=== PATIENT | male | born 1975 | race African-American/Black ===

== ENCOUNTER 2021-02-12 09:28 | Emergency (ER) | payer MEDICAID ==
[~2021-02-12] VITALS: Ht 188 cm; Wt 78.0 kg
[~2021-02-12 09:28] MED LIST: PROT40 MT
[2021-02-12] MEDS ORDERED: KETOROLAC 30MG/ML VIAL IM ONE (10:30)
[2021-02-12] MEDS ORDERED: CYCLOBENZAPRINE 10MG TABLET PO ONE (10:30)
[2021-02-12 11:06] VITALS: BP 127/91
[2021-02-12] MEDS ORDERED: NAPR-1176 MT (11:20)
[2021-02-12] MEDS ORDERED: CYCL10TA7 MT (11:20)
== END 2021-02-12 11:40 | disposition home or self-care (01) ==
LOC: ER 09:47
DX: M54.5 Low back pain (principal); Z79.899 Other long term (current) drug therapy
CPT/HCPCS: 96372; 99283; J1885

== ENCOUNTER 2021-12-15 03:33 | Inpatient (IN) | payer MEDICAID ==
[~2021-12-15] VITALS: Ht 185.4 cm; Wt 62.6 kg
[~2021-12-15 03:33] MED LIST changes: +CYCL10TA21 MT; +NAPR-1176 MT
[2021-12-15] MEDS ORDERED: MORPHINE SULFATE 4 MG/ML CPJ (NOT FOR IM USE) IV STA (05:03)
[2021-12-15] MEDS ORDERED: ONDANSETRON HCL 4MG/2ML INJ IV STA (05:03)
[2021-12-15] MEDS ORDERED: SODIUM CHLORIDE 0.9% 1,000 ML IV ONE (05:15)
[2021-12-15 05:38] LABS: BASOPHILS % 0.5 % (0.0-2.0); EOSINOPHILS % 0.1 % (0.0-5.0); HEMATOCRIT. 39.7 % (42.0-52.0); HEMOGLOBIN. 13.2 g/dL (14.0-18.0); LYMPHOCYTES % 9.4 % (20.0-50.0); MEAN CORPUSCULAR HEMOGLOBIN 32.3 pg (28.0-32.0); MEAN CORPUSCULAR VOLUME 97.1 fL (80.0-94.0); MEAN PLATELET VOLUME 8.3 fl (7.4-10.4); MONOCYTES % 5.4 % (2.0-8.0); NEUTROPHILS % 84.6 % (40.0-76.0); PLATELET 199 x1000/uL (130-400); RED BLOOD CELL COUNT 4.08 mill/uL (4.7-6.1); RED CELL DISTRIBUTION WIDTH 14.7 % (11.6-14.6)
[2021-12-15 05:46] LABS: CHLORIDE 89 mEq/L (98-107)
[2021-12-15] MEDS ORDERED: ACETAMINOPHEN 325MG TABLET PO PRN (09:30)
[2021-12-15] MEDS ORDERED: LORAZEPAM 2MG/ML CPJ IV PRN (09:30)
[2021-12-15] MEDS ORDERED: ONDANSETRON HCL 4MG/2ML INJ IV PRN (09:30)
[2021-12-15] MEDS: SODIUM CHLORIDE 0.9% 1,000 ML IV SCH (09:56)
[2021-12-15 09:58] LABS: CLARITY URINE CLEAR (CLEAR); COLOR URINE DARK YELLOW (YELLOW); KETONES URINE 3+ (NEGATIVE); LEUKOCYTE ESTERASE URINE TRACE (NEGATIVE); NITRITE URINE NEGATIVE (NEGATIVE); OCCULT BLOOD URINE TRACE (NEGATIVE); PROTEIN URINE 2+ (NEGATIVE); SPECIFIC GRAVITY URINE 1.032 (1.005-1.030)
[2021-12-15] MEDS ORDERED: PANTOPRAZOLE SODIUM 40 MG/VIAL IV SCH (10:00)
[2021-12-15 12:00] LABS: BASOPHILS % 0.5 % (0.0-2.0); HEMOGLOBIN. 12.3 g/dL (14.0-18.0); LYMPHOCYTES % 11.5 % (20.0-50.0); MEAN CORPUSCULAR HEMOGLOBIN 32.9 pg (28.0-32.0); MEAN CORPUSCULAR VOLUME 96.1 fL (80.0-94.0); MEAN PLATELET VOLUME 7.9 fl (7.4-10.4); MONOCYTES % 5.2 % (2.0-8.0); NEUTROPHILS % 82.8 % (40.0-76.0); PLATELET 170 x1000/uL (130-400); RED BLOOD CELL COUNT 3.75 mill/uL (4.7-6.1); RED CELL DISTRIBUTION WIDTH 14.8 % (11.6-14.6)
[2021-12-15 12:07] LABS: HEPATITIS B SURFACE ANTIGEN NEGATIVE
[2021-12-15 12:10] LABS: AMYLASE 61 IU/L (25-115)
[2021-12-15 12:42] VITALS: BP 127/93
[2021-12-15 13:09] LABS: TOTAL IRON BINDING CAPACITY 293 ug/dL (250-450)
[2021-12-15 13:15] VITALS: BP 127/93
[2021-12-15] MEDS ORDERED: NALOXONE HCL 0.4MG/ML VIAL IV PRN (14:15)
[2021-12-15] MEDS: PANTOPRAZOLE SODIUM 40 MG/VIAL IV SCH ×2 (14:25→23:10)
[2021-12-15] MEDS: MORPHINE SULFATE 2 MG/ML CPJ (NOT FOR IM USE) IV PRN ×2 (14:26→20:19)
[2021-12-15] MEDS: MVI, ADULT NO.1 10 ML, FOLIC ACID 1 MG, THIAMINE HCL 100 MG in SODIUM CHLORIDE 0.9% 1,0... IV SCH ×4 (14:26)
[2021-12-15] MEDS: DIATR MEGLU/DIATRIZOATE SOLN 30ML PO NR ×2 (14:43→15:44)
[2021-12-15] MEDS ORDERED: SUCR1TAB PO (15:31)
[2021-12-15 15:43] LABS: FOLIC ACID (FOLATE) SERUM 3.6 ng/mL (>5.38)
[2021-12-15 16:00] VITALS: BP 143/92
[2021-12-15 20:00] VITALS: BP 134/85
[2021-12-15 21:32] LABS: HEMATOCRIT 31.5 % (42.0-52.0); HEMOGLOBIN 10.7 g/dL (14.0-18.0)
[2021-12-16] VITALS: BP 141/89
[2021-12-16] MEDS: SODIUM CHLORIDE 0.9% 1,000 ML IV SCH ×3 (01:05→18:18)
[2021-12-16 03:12] LABS: HEMATOCRIT 29.2 % (42.0-52.0); HEMOGLOBIN 9.8 g/dL (14.0-18.0)
[2021-12-16 04:00] VITALS: BP 137/84
[2021-12-16 06:29] LABS: BASOPHILS % 0.6 % (0.0-2.0); EOSINOPHILS % 0.3 % (0.0-5.0); HEMOGLOBIN. 9.3 g/dL (14.0-18.0); LYMPHOCYTES % 29.7 % (20.0-50.0); MEAN CORPUSCULAR HEMOGLOBIN 33.5 pg (28.0-32.0); MEAN CORPUSCULAR VOLUME 97.5 fL (80.0-94.0); MONOCYTES % 10.4 % (2.0-8.0); PLATELET 120 x1000/uL (130-400); RED BLOOD CELL COUNT 2.77 mill/uL (4.7-6.1); RED CELL DISTRIBUTION WIDTH 14.6 % (11.6-14.6)
[2021-12-16 07:48] LABS: CHLORIDE 93 mEq/L (98-107)
[2021-12-16 07:54] LABS: AMYLASE 53 IU/L (25-115)
[2021-12-16 08:00] VITALS: BP 132/76
[2021-12-16 12:00] VITALS: BP 117/82
[2021-12-16 12:02] LABS: HEMATOCRIT 26.8 % (42.0-52.0)
[2021-12-16] MEDS: PANTOPRAZOLE SODIUM 40 MG/VIAL IV SCH (12:56)
[2021-12-16] MEDS: MVI, ADULT NO.1 10 ML, FOLIC ACID 1 MG, THIAMINE HCL 100 MG in SODIUM CHLORIDE 0.9% 1,0... IV SCH ×4 (12:56)
[2021-12-16 16:00] VITALS: BP 114/76
[2021-12-16 20:00] VITALS: BP 119/80
[2021-12-16 21:38] LABS: HEMATOCRIT 25.8 % (42.0-52.0); HEMOGLOBIN 8.7 g/dL (14.0-18.0)
[2021-12-17] VITALS: BP 124/83
[2021-12-17] MEDS: PANTOPRAZOLE SODIUM 40 MG/VIAL IV SCH ×2 (00:02→12:15)
[2021-12-17] MEDS: SODIUM CHLORIDE 0.9% 1,000 ML IV SCH ×2 (00:28→09:30)
[2021-12-17 02:24] LABS: BASOPHILS % 0.5 % (0.0-2.0); EOSINOPHILS % 0.5 % (0.0-5.0); HEMOGLOBIN. 8.9 g/dL (14.0-18.0); LYMPHOCYTES % 24.7 % (20.0-50.0); MEAN CORPUSCULAR VOLUME 95.9 fL (80.0-94.0); MEAN PLATELET VOLUME 9.3 fl (7.4-10.4); MONOCYTES % 7.1 % (2.0-8.0); NEUTROPHILS % 67.2 % (40.0-76.0); PLATELET 112 x1000/uL (130-400); RED BLOOD CELL COUNT 2.71 mill/uL (4.7-6.1); RED CELL DISTRIBUTION WIDTH 14.3 % (11.6-14.6)
[2021-12-17 04:00] VITALS: BP 119/73
[2021-12-17 06:50] LABS: INR 1.1; PROTHROMBIN TIME 11.4 sec (9.6-11.0)
[2021-12-17 07:05] LABS: CHLORIDE 99 mEq/L (98-107)
[2021-12-17 08:00] VITALS: BP 103/68
[2021-12-17] MEDS: MVI, ADULT NO.1 10 ML, FOLIC ACID 1 MG, THIAMINE HCL 100 MG in SODIUM CHLORIDE 0.9% 1,0... IV SCH ×4 (09:00)
[2021-12-17 09:58] LABS: HEMATOCRIT 23.7 % (42.0-52.0)
[2021-12-17 12:00] VITALS: BP 119/78
[2021-12-17] MEDS ORDERED: PROPOFOL 200MG/20ML VIAL IV ONE (12:11)
[2021-12-17] MEDS ORDERED: MEPERIDINE HCL/PF 25MG/ML CPJ IV PRN (13:00)
[2021-12-17] MEDS ORDERED: ONDANSETRON HCL 4MG/2ML INJ IV PRN (13:00)
[2021-12-17] MEDS ORDERED: FENTANYL CITRATE/PF 50MCG/ML 2ML VIAL IV PRN (13:00)
[2021-12-17] MEDS ORDERED: SODIUM CHLORIDE 0.9% 1,000 ML IV ONE (13:15)
== END 2021-12-17 14:45 | disposition left against medical advice (07) | DRG 241 ==
LOC: ER 03:33 → 6WST 09:11 → EDBEDREQTM 09:15 → EDBEDREQ 09:15 → ENRESERV 12:03
PROVIDERS: ADMIT Internal Medicine; ATTEND Internal Medicine
PROC: 0DB78ZX Excision of Stomach, Pylorus, Via Natural or Artificial Opening Endoscopic, Diagnostic (ICD-10-PCS; principal; 2021-12-17)
DX: K29.01 Acute gastritis with bleeding (principal); K85.90 Acute pancreatitis without necrosis or infection, unspecified; K76.0 Fatty (change of) liver, not elsewhere classified; D53.9 Nutritional anemia, unspecified; K86.1 Other chronic pancreatitis; N28.1 Cyst of kidney, acquired; K92.1 Melena; R82.71 Bacteriuria; F10.20 Alcohol dependence, uncomplicated; Z20.822 Contact with and (suspected) exposure to COVID-19; I25.2 Old myocardial infarction; Z79.899 Other long term (current) drug therapy; Z53.29 Procedure and treatment not carried out because of patient's decision for other reasons; Z87.11 Personal history of peptic ulcer disease
CPT/HCPCS: 36415; 74176; 76700; 80048; 80053; 81003; 82150; 82270; 82607; 82728; 82746; 82962; 83540; 83550; 85014; 85018; 85025; 85044; 86705; 86709; 86803; 86850; 86900; 86920; 87340; 87426; 88305; 93005; 93970; 99285; C9113; J2270; J2405; J2704; J3411; J3490; J7030; Q9963

== ENCOUNTER 2023-07-19 08:01 | Emergency (ER) | payer MEDICAID ==
[~2023-07-19] VITALS: Ht 188 cm; Wt 81.0 kg
[~2023-07-19 08:01] MED LIST changes: +SUCR1TAB PO
[2023-07-19 08:10] VITALS: O2SAT 99
[2023-07-19 08:36] LABS: CLARITY URINE CLEAR (CLEAR); COLOR URINE YELLOW (YELLOW); GLUCOSE URINE NEGATIVE (NEGATIVE); KETONES URINE TRACE (NEGATIVE); LEUKOCYTE ESTERASE URINE NEGATIVE (NEGATIVE); NITRITE URINE NEGATIVE (NEGATIVE); OCCULT BLOOD URINE NEGATIVE (NEGATIVE); PROTEIN URINE NEGATIVE (NEGATIVE); SPECIFIC GRAVITY URINE 1.012 (1.005-1.030)
[2023-07-19 09:01] LABS: BASOPHILS % 0.5 % (0.0-2.0); HEMATOCRIT. 34.7 % (42.0-52.0); HEMOGLOBIN. 11.3 g/dL (14.0-18.0); LYMPHOCYTES % 13.2 % (20.0-50.0); MEAN CORPUSCULAR HEMOGLOBIN 30.9 pg (28.0-32.0); MEAN CORPUSCULAR HGB CONC 32.6 g/dL (31.0-37.0); MEAN CORPUSCULAR VOLUME 94.7 fL (80.0-94.0); MEAN PLATELET VOLUME 8.9 fl (7.4-10.4); MONOCYTES % 5.5 % (2.0-8.0); NEUTROPHILS % 80.8 % (40.0-76.0); PLATELET 135 x1000/uL (130-400); RED BLOOD CELL COUNT 3.67 mill/uL (4.7-6.1); RED CELL DISTRIBUTION WIDTH 16.2 % (11.6-14.6); WHITE BLOOD COUNT 8.8 x1000/uL (4.5-11.0)
[2023-07-19] MEDS ORDERED: ONDANSETRON 4MG ODT PO STA (09:25)
[2023-07-19] MEDS ORDERED: MAGNESIUM/ALUMINUM HYDROXIDE/SIMETHICONE 30ML UDC PO STA (09:25)
[2023-07-19] MEDS ORDERED: DICYCLOMINE 10 MG/5 ML ORAL SYR PO STA (09:25)
[2023-07-19 09:51] LABS: ALANINE AMINOTRANSFERASE 150 IU/L (10-49); ALBUMIN 4.9 g/dL (3.2-4.8); ASPARTATE AMINOTRANSFERASE 228 IU/L (<34); BILIRUBIN TOTAL 0.9 mg/dL (0.1-1.0); CALCIUM 10.4 mg/dL (8.7-10.4); CARBON DIOXIDE 30 mEq/L (21-32); CHLORIDE 90 mEq/L (98-107); CREATININE 1.1 mg/dL (0.6-1.3); GLUCOSE 116 mg/dL (70-105); POTASSIUM 3.3 mEq/L (3.5-5.1); PROTEIN TOTAL 8.2 g/dL (6.0-8.3); SODIUM 133 mEq/L (136-145); UREA NITROGEN BLOOD 10 mg/dL (9-23)
[2023-07-19 10:09] LABS: TROPONIN I HIGH SENSITIVITY < 4 ng/L (3.0-53)
[2023-07-19] MEDS ORDERED: POTASSIUM CHLORIDE 20MEQ TABLET SR PO ONE (10:30)
[2023-07-19] MEDS ORDERED: SODIUM CHLORIDE 0.9% 1,000 ML IV ONE (10:30)
[2023-07-19] MEDS ORDERED: ONDANSETRON 4MG ODT PO NR (12:00)
[2023-07-19] MEDS ORDERED: POTASSIUM CHLORIDE 20MEQ TABLET SR PO NR (12:00)
[2023-07-19] MEDS ORDERED: MAGNESIUM/ALUMINUM HYDROXIDE/SIMETHICONE 30ML UDC PO NR (12:00)
[2023-07-19] MEDS ORDERED: KETOROLAC 30MG/ML VIAL IV ONE (13:00)
[2023-07-19] MEDS ORDERED: ONDA4TAB11 PO (13:11)
[2023-07-19] MEDS ORDERED: PROT40 MT (13:12)
[2023-07-19 15:20] VITALS: BP 121/72; PULSE 86; RESP 20; TEMP 98.3
== END 2023-07-19 23:26 | disposition home or self-care (01) ==
LOC: ER 08:01
DX: E86.0 Dehydration (principal); R10.9 Unspecified abdominal pain; Z98.890 Other specified postprocedural states
CPT/HCPCS: 80053; 81003; 83690; 85025; 84484; 36415; 74176; 93005; 96361; 96374; 99285; Q0162; J1885; J7030; Z7610 ×2